=== PATIENT | male | born 1965 | race Asian ===

== ENCOUNTER 2020-05-06 07:07 | Day surgery (SDC) | payer BC ==
[~2020-05-06] VITALS: Ht 172.7 cm; Wt 90.7 kg
[2020-05-06 07:41] VITALS: BP 127/72
[2020-05-06 11:25] VITALS: BP 118/85
== END 2020-05-06 11:10 | disposition home or self-care (01) ==
LOC: GI 07:07 → OR 09:00 → GI 09:00
PROVIDERS: ATTEND Internal Medicine Gastroenterology
DX: Z12.11 Encounter for screening for malignant neoplasm of colon (principal); E11.9 Type 2 diabetes mellitus without complications; I10 Essential (primary) hypertension; Z79.899 Other long term (current) drug therapy; Z20.828 Contact with and (suspected) exposure to other viral communicable diseases
CPT/HCPCS: 45378; J1200; J1610; J2250; J2310; J3010; J3490